=== PATIENT | male | born 1990 | race Caucasian/White ===

== ENCOUNTER 2019-12-04 19:40 | Emergency (ER) | payer OTHER ==
[2019-12-04] MEDS ORDERED: Tetracaine HCl/PF 0.5% 4 ML Bottle EYEBOTH ONE (19:43)
--- NOTE | 2019-12-04 20:53 | EDM.PDOC ---
ED HPI GENERAL MEDICAL PROBLEM - General Stated Complaint: FOREIGN OBJECT IN LT EYE Time Seen by Provider: 12/04/19 19:41 Source of Information: Reports: Patient History Limitations: Reports: No Limitations - History of Present Illness INITIAL COMMENTS - FREE TEXT/NARRATIVE: HISTORY AND PHYSICAL: History of present illness: Patient is a 29-year-old male who presents to the ED today with concern of foreign body of his left eye. 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 Patient states he initially was seen at the [facility] and they had put the numbing drops in his eye, stained his eye and flushed his eye out for 30 minutes with saline. Patient states that he feels they did not look well enough into his eye as he can still feel the foreign body moving around his eye and not stuck in [address]. Patient states after the pain medication wore off he began to experience the foreign body sensation again and can feel it moving around. Patient states he was given an antibiotic eyedrop prescription already but has not used it yet. Patient denies any contact or glasses use. Patient denies fever, chills, chest pain, shortness of breath, or cough. Denies headache, neck stiff ness, change in vision, syncope, or near syncope. Denies nausea, vomiting, abdominal pain, diarrhea, constipation, or dysuria. Has not noted any blood in urine or stool. Patient has been eating and drinking appropriately. Review of systems: As per history of present illness and below otherwise all systems reviewed and negative. Past medical history: As per history of present illness and as reviewed below otherwise noncontributory. Surgical history: As per history of present illness and as reviewed below otherwise noncontributory. Social history: See social history for further information Family history: As per history of present illness and as reviewed below otherwise noncontributory. Physical exam: General: Patient is alert, oriented, and in no acute distress. Patient sitting comfortably on exam table. HEENT: Visual acuity intact. Tonopen pressure of left eye 16. EOMS intact without pain or difficulty. Fluroscene stain performed without evidence of corneal abrasion/ulceration. Left upper and lower lids everted. There is a small , pinpoint foreign body stuck to the upper lid. Negative for corneal opacity, hyphema, or hypopyon. Otherwise, atraumatic, normocephalic, pupils equal and reactive bilaterally, negative for conjunctival pallor or scleral icterus, mucous membranes moist, TMs normal bilaterally, throat clear, neck supple, nontender, trachea midline. No drooling or trismus noted. No meningeal signs. No hot potato voice noted. Lungs: Clear to auscultation, breath sounds equal bilaterally, chest nontender. Heart: S1S2, regular rate and rhythm without overt murmur Abdomen: Soft, nondistended, nontender. Negative for masses or hepatosplenomegaly. Negative for costovertebral tenderness. Pelvis: Stable nontender. Genitourinary: Deferred. Rectal: Deferred. Skin: Intact, warm, dry. No lesions or rashes noted. Extremities: Atraumatic, negative for cords or calf pain. Neurovascular unremarkable. Neuro: Awake, alert, oriented. Cranial nerves II through XII unremarkable. Cerebellum unremarkable. Motor and sensory unremarkable throughout. Exam nonfocal. Notes: Qtip was used to remove foreign body of left eyelid without difficulty. Patient tolerated procedure well. Findings: small pinpoint foreign body of unknown determination. Discussed importance for follow-up with primary care provider or telesales professional. Voices understanding and is agreeable to plan of care. Denies any further questions or concerns at this time. Diagnostics: Tonopen, Fluroscene nino lamp Therapeutics: Tetracaine ophthalmic Prescription: None Impression: Foreign body in eye, left, resolved Plan: 1. Use the antibiotic drops that have been prescribed to you already as directed. 2. Follow-up with your primary care provider or telesales professional as discussed. Return to the ED as needed and as discussed. Definitive disposition and diagnosis as appropriate pending reevaluation and review of above. ED ROS GENERAL - Review of Systems Review Of Systems: Comprehensive ROS is negative, except as noted in HPI. ED EXAM, GENERAL - Physical Exam Exam: See Below (see dictation) Course - Orders/Labs/Meds Orders: Active Orders 24 hr Category Date Time Status Communication Order [RC] STAT Care 12/04/19 19:43 Active Meds: Medications Discontinued Medications Generic Name Dose Route Start Last Admin Trade Name Freq PRN Reason Stop Dose Admin Tetracaine HCl 2 ml 04/03/20 19:43 Tetracaine 0.5% Steri-Unit Kiera EYEBOTH 12/04/19 19:44 ASDIRECTED ONE Departure - Departure Time of Disposition: 20:43 Disposition: Home, Self-Care 01 Clinical Impression: Foreign body in eye Qualifiers: Encounter type: initial encounter Laterality: left Qualified Code(s): T15.92XA - Foreign body on external eye, part unspecified, left eye, initial encounter - Discharge Information Referrals: PCP,None [Primary Care Provider] - Additional Instructions: The following information is given to patients seen in the emergency department who are being discharged to home. This information is to outline your options for follow-up care. We provide all patients seen in our emergency department with a follow-up referral. The need for follow-up, as well as the timing and circumstances, are variable depending upon the specifics of your emergency department visit. If you don't have a primary care physician on staff, we will provide you with a referral. We always advise you to contact your personal physician following an emergency department visit to inform them of the circumstance of the visit and for follow-up with them and/or the need for any referrals to a consulting specialist. The emergency department will also refer you to a specialist when appropriate. This referral assures that you have the opportunity for follow-up care with a specialist. All of these measure are taken in an effort to provide you with optimal care, which includes your follow-up. Under all circumstances we always encourage you to contact your private physician who remains a resource for coordinating your care. When calling for follow-up care, please make the office aware that this follow-up is from your recent emergency room visit. If for any reason you are refused follow-up, please contact the [facility] at and asked to speak to the emergency department charge nurse. [facility] [address] [place] [id number] [id number] 1. Use the antibiotic drops that have been prescribed to you already as directed. 2. Follow-up with your primary care provider or telesales professional as discussed. Return to the ED as needed and as discussed. - My Orders Last 24 Hours: My Active Orders 12/04/19 19:43 Communication Order [RC] STAT - Assessment/Plan Last 24 Hours: My Active Orders 12/04/19 19:43 Communication Order [RC] STAT
== END 2019-12-04 21:11 | disposition home or self-care (01) ==
LOC: MW.ED 19:40
DX: T15.12XA Foreign body in conjunctival sac, left eye, initial encounter (principal)
CPT/HCPCS: 99283